=== PATIENT | male | born 1945 | race Caucasian/White ===

== ENCOUNTER 2024-08-05 08:47 | Emergency (ER) | payer MEDICARE, SELFPAY ==
[2024-08-05 09:12] VITALS: BP 142/64; PULSE 72; RESP 18; TEMP 36.7; O2SAT 99
--- NOTE | 2024-08-05 09:15 | ED.EAR ---
HPI - Ear Problem General Chief complaint: Ear Stated complaint: fragment stuck in ear (uncertain) Source: patient, RN notes reviewed and old records reviewed Mode of arrival: ambulatory Limitations: no limitations History of Present Illness HPI Narrative: 78 year old male presents to [facility] with concern that he has piece of his right hearing aide stuck in his right ear canal. Patient reports that one week ago he bought hearing aides and noticed last night that a piece was missing off the end of his right hearing aide. Patient reports that he is not uncomfortable. MD Complaint: other (thinks he may have hearing aid piece stuck in ear) Location: right ear Discharge from ear: Reports no Treatment prior to arrival: none Related Data Home Medications ?Medication ?Instructions ?Recorded ?Confirmed ?Last Taken ?Type tamsulosin 0.4 mg capsule mg PO 08/05/24 Unknown History Allergies Allergy/AdvReac Type Severity Reaction Status Date / Time No Known Allergies Allergy Verified 08/05/24 09:14 Review of Systems Review of Systems: CONSTITUTIONAL: Denies fever, chills, or sweats. EYES: Denies visual changes, redness, or discharge. ENT: Denies rhinorrhea, congestion, sore throat, or otalgia.is concerned a piece of hearing aide is stuck in his right ear canal. CARDIOVASCULAR: Denies chest pain, palpitations, or edema. RESPIRATORY: Denies cough or dyspnea. GASTROINTESTINAL: Denies abdominal pain, nausea, vomiting, or diarrhea. GENITOURINARY: Denies dysuria or hematuria. SKIN: Denies rash or itching. MUSCULOSKELETAL: Denies back pain, joint pain, or myalgia. NEUROLOGIC: Denies headache, numbness, or weakness. PSYCHIATRIC: Denies anxiety or depression. All systems reviewed & are unremarkable except as noted in HPI and below PMFSH Past Medical History Medical History (Updated 08/06/24 @ 20:48 by Mary Linares NP) BPH (benign prostatic hyperplasia) Social History Social History (Updated 08/06/24 @ 20:48 by Mary Linares NP) Smoking status: Smoker, status unknown Alcohol intake: unknown Substance use: unknown Living arrangements: with family Gender identity (if verbalized by the patient): Male Comments At time of signature, agree with nursing past medical, surgical, social and family history. There is no relevant family history pertinent to the presenting complaint Exam Narrative: GENERAL: Well-appearing, well-nourished, and in no acute distress. HEAD: Normocephalic, atraumatic. EYES: PERRLA and EOMI. ENT: Nares clear, no rhinorrhea or epistaxis. Mucous membranes moist.TM's normal with good light reflex, no foreign body noted in right ear canal or any redness of canal, throat pink with no swelling NECK: Supple.no lymphadenopathy CHEST: Clear to auscultation. No respiratory distress. no cough or congestion, SAO2 99% on room air HEART: Regular rate and rhythm. No murmur heard. Normal peripheral pulses. ABDOMEN: Soft, nontender, nondistended, normal active bowel sounds. EXTREMITIES: Normal range of motion. No edema. SKIN: Warm, dry, no rash. NEURO: No focal deficits. Alert and oriented x3. Course Course Emergency Course: Patient is aware of diagnosis, understands and agrees to treatment plan.? Anticipatory guidance given.? Patient agrees to follow-up as directed and is aware of reasons to seek care at the emergency department. Portions of this record may have been created with voice recognition software Level of Care: Express Care Visit Vital Signs Vital signs: Vital Signs Temperature 36.7 C 08/05/24 09:12 Pulse Rate 72 08/05/24 09:12 Respiratory Rate 18 08/05/24 09:12 Blood Pressure 142/64 H 08/05/24 09:12 Pulse Oximetry 99 08/05/24 09:12 Oxygen Delivery Room Air 08/05/24 09:12 Temperature 36.7 C 08/05/24 09:12 Pulse Rate 72 08/05/24 09:12 Respiratory Rate 18 08/05/24 09:12 Blood Pressure 142/64 H 08/05/24 09:12 Pulse Oximetry 99 08/05/24 09:12 Oxygen Delivery Room Air 08/05/24 09:12 Reviewed Medical Decision Making MDM Narrative Medical decision making narrative: Exam findings and imaging show no acute concerns or changes; patient is non-toxic appearing and is in no distress.? Patient is appropriate for outpatient treatment and follow-up Differential Diagnosis Differential Diagnosis: concern for foreign body right ear, no foreign body observed Medical Records Medical records reviewed: Yes I reviewed the external patient's medical records. Vital Signs Vital Signs: Vital Signs Temperature 36.7 C 08/05/24 09:12 Pulse Rate 72 08/05/24 09:12 Respiratory Rate 18 08/05/24 09:12 Blood Pressure 142/64 H 08/05/24 09:12 Pulse Oximetry 99 08/05/24 09:12 Oxygen Delivery Room Air 08/05/24 09:12 Temperature 36.7 C 08/05/24 09:12 Pulse Rate 72 08/05/24 09:12 Respiratory Rate 18 08/05/24 09:12 Blood Pressure 142/64 H 08/05/24 09:12 Pulse Oximetry 99 08/05/24 09:12 Oxygen Delivery Room Air 08/05/24 09:12 reviewed Critical Care Time Critical Care Time Critical Care Time: No Discharge Plan Discharge Clinical Impression: Well adult Patient Disposition: Home, Self-Care Condition: Stable Additional Instructions: no foreign body noted to right ear follow-up with hearing aid assembly supervisor for new piece for hearing aid Have a Kesha Obrien Patient Language: Lithuanian Prescriptions: No Action tamsulosin 0.4 mg capsule PO Follow-up/Referrals: UNKNOWN,DOCTOR [Non-Staff] - Time of Disposition: 09:27 Quality [place] Coma Scale Eyes: Open Verbal: Oriented and Alert Motor: Follows Commands [place] Coma Total Score: 15
--- OUTSIDE RECORDS SUMMARY | 2024-08-12 06:50 | XMS_ITS | Encounter Summary ---
Author Organization [facility] Address [address] [place] [address]. [place] [id number] [place] [address] Care Team Providers Care Chart Clerk Name Role Phone Unavailable Primary Care Provider Unavailabl e Encounter Details Date Type Department Care Team (Late st Contact Info) Description 03/29/2012 Abstract [facility] Conversion , Generic ConversionMD Social History Tobacco Use Types Packs/Day Years Used Date Smoking Tobacco: Never Assessed Sex and Gender Information Value Date Recorded Sex Assigned at Not on file Legal Sex Male 5:21 PM CDT Gender Identity Not on file Sexual Orientation Not on file documented as of this encounter Plan of Treatment Not on file documented as of this encounter Visit Diagnoses Not on filedocumented in this encounter
--- OUTSIDE RECORDS SUMMARY | 2024-08-12 06:50 | XMS_ITS | Encounter Summary ---
Author Organization [facility] Address [address] [place] [address]. [place] [phone] [place] [address] Care Team Providers Care Couturiere Name Role Phone Unavailable Primary Care Provider Unavailabl e Encounter Details Date Type Department Care Team (Late st Contact Info) Description 03/28/2012 Abstract [facility] Conversion , Generic ConversionMD Social History [...]
--- OUTSIDE RECORDS SUMMARY | 2024-08-12 06:50 | XMS_ITS | Encounter Summary ---
Author Organization [facility] Address [facility]. [place], [place] [phone] [place] [address] Care Team Providers Care Education Nurse Name Role Phone Unavailable Primary Care Provider Unavailabl e Encounter Details Date Type Department Care Team (Late st Contact Info) Description 12/23/2011 Abstract [facility] Emergency Services [address] [place] [address] George Sylvester MD [facility] GRAHAM JARAMILLO , [facility] [address] [place] [address] Social History Tobacco Use Types Packs/Day Years [...]
--- OUTSIDE RECORDS SUMMARY | 2024-08-12 06:50 | XMS_ITS | Encounter Summary ---
Author Organization [facility] Address [address] [place] [address]. [place] [phone] [place], [place] [id number] Care Team Providers Care Abstract Checker Name Role Phone Unavailable Primary Care Provider Unavailabl e Encounter Details Date Type Department Care Team (Late st Contact Info) Description 07/20/2011 Abstract [facility] Conversion Md, Generic ConversionMD Social History Tobacco Use Types [...]
--- OUTSIDE RECORDS SUMMARY | 2024-08-12 06:50 | XMS_ITS | Encounter Summary ---
Author Organization [facility] Address [address] [place] [address]. [place], [place] [id number] [place] [address] Care Team Providers Care Supervisor Gelatin Plant Name Role Phone Unavailable Primary Care Provider Unavailabl e Encounter Details Date Type Department Care Team (Late st Contact Info) Description 09/16/2005 Abstract [facility] Diagnostic Imaging [address] [place] [address] Al Abraham [place] [address] Social History Tobacco Use Types Packs/Day Years [...]
--- OUTSIDE RECORDS SUMMARY | 2024-08-12 06:50 | XMS_ITS | Encounter Summary ---
Author Organization [facility] Address [address] [place] [address]. [place] [phone] [place], [place] [id number] Care Team Providers Care Dye Machine Operator Name Role Phone Unavailable Primary Care Provider Unavailabl e Encounter Details Date Type Department Care Team (Late st Contact Info) Description 01/19/2013 Abstract [facility] Conversion , Generic ConversionMD Social History [...]
--- OUTSIDE RECORDS SUMMARY | 2024-08-12 06:50 | XMS_ITS | Clinical Summary ---
Author Organization [facility] Address [address] [place] [address]. [place] [phone] [place] [address] Care Team Providers Care Dewer Name Role Phone Unavailable Primary Care Provider Unavailabl e Social History Tobacco Use Types Packs/Day Years Used Date Smoking Tobacco: Never Assessed Sex and Gender Information Value Date Recorded Sex Assigned at Not on file Legal Sex Male 5:21 PM CDT Gender Identity Not on file Sexual Orientation Not on file Plan of Treatment Health Maintenance Due Date Last Done Comments Hepatitis C 1963 DTaP, Tdap and Td Vaccines ( 1 - Tdap) 1964 Zoster Vaccines (1 of 2) 1995 Pneumococcal Vaccine: 65+ Ye ars (1 of 1 - PCV) 2010 RSV Immunization or 60+ Years (1 - 1-dose 75+ series) 2020 COVID-19 Vaccine (2023-2 5 season) 2024 Influenza Adult (#1) 2024 Meningococcal Vaccine Aged Out No loyda susy eligible based on patient's age to complete this topic RSV Immunizations Under 20 Months Aged Out No longer eligible based on patient's age to complete this topic
--- OUTSIDE RECORDS SUMMARY | 2024-08-12 06:50 | XMS_ITS | Encounter Summary ---
Author Organization [facility] Address [facility] [place] [address] [place] [address] Care Team Providers Care Boat Joiner Helper Name Role Phone Unavailable Primary Care Provider Unavailabl e Encounter Details Date Type Department Care Team (Late st Contact Info) Description 04/08/2010 Abstract [facility] CONVERSION [address] [place] [address] Dhruv Suh MD [address] [place] [address] Social History Tobacco Use Types Packs/Day Years [...]
--- OUTSIDE RECORDS SUMMARY | 2024-08-12 06:50 | XMS_ITS | Encounter Summary ---
Author Organization [facility] Address [address] [place] [address]. [place], [place] [phone] [place] [address] Care Team Providers Care Parks Worker Name Role Phone Unavailable Primary Care Provider Unavailabl e Encounter Details Date Type Department Care Team (Late st Contact Info) Description 10/21/2005 Abstract [facility] Diagnostic Imaging [address] [place] [address] Al Abraham MD [facility] [place] [address] Social History Tobacco Use Types Packs/Day Years [...]
--- OUTSIDE RECORDS SUMMARY | 2024-08-12 06:50 | XMS_ITS | Encounter Summary ---
Author Organization [facility] Address [facility] [place] [address] [place] [address] Care Team Providers Care Smt Technician Name Role Phone Unavailable Primary Care Provider Unavailabl e Encounter Details Date Type Department Care Team (Late st Contact Info) Description 07/25/2009 Abstract [facility] [address] [place] [address] Edward Tucker MD [address] [place] [address] Social History Tobacco Use Types Packs/Day Years [...]
== END 2024-08-05 09:31 | disposition home or self-care (01) ==
PROVIDERS: Emergency Provider Registered Nurse
DX: Z71.1 Person with feared health complaint in whom no diagnosis is made (principal); N40.0 Benign prostatic hyperplasia without lower urinary tract symptoms
CPT/HCPCS: 99202; G0463